=== PATIENT | female | born 1935 | race Caucasian/White ===

== ENCOUNTER → 2018-01-03 | Outpatient (CLI) | payer MEDICARE, BC ==
[~2018-01-03] MED LIST: ALEVE; DIOVAN160 MG PO; HYDROCHLOROTHIA25 MG PO; Z.0.DIOVAN HCT 1601 PO; ZOFRAN4 MG PO
--- NOTE | 2018-01-03 20:52 | Diagnostic Imaging Report ---
PROCEDURE:X-RAY ABDOMEN - KUB COMPARISON:Patients [facility], CT, CT ABDOMEN/PELVIS WO, 12/26/2016, 21:16. Patients [facility], DX, ABDOMEN-1VIEW (KUB), 05/03/2017, 11:35. INDICATIONS:follow up for kidney stones. denies complaints FINDINGS: Nonobstructive bowel gas pattern. Radiopaque densities projecting in the left upper quadrant corresponds to splenic artery calcifications. No radiopaque densities project over the renal shadows, expected course of the ureters or bladder. Stable pelvic phleboliths. Degenerative changes in the thoracic spine with mild leftward curvature. CONCLUSION: No radiopaque densities project over the genitourinary tract. Carrillo Salazar M.D. Dictated by: Carrillo Salazar M.D. on 01/03/2018 at 17:46 Electronically approved by: Carrillo Salazar M.D. on 01/03/2018 at 17:46
== END ==
LOC: RAD 13:40
PROVIDERS: ATTEND Urology
DX: Z87.442 Personal history of urinary calculi (principal)
CPT/HCPCS: 74018

== ENCOUNTER → 2019-02-22 | Outpatient (CLI) | payer MEDICARE, BC ==
--- NOTE | 2019-02-22 12:44 | Diagnostic Imaging Report ---
Exam: KUB Clinical history: Renal calculus Findings: No radiopaque stones are noted in the region of the renal shadows. 1 to 2 mm calcific density structures are seen overlying the left lower pelvis which may represent phleboliths, although distal ureteral stone cannot be excluded. There is nonobstructive bowel gas pattern. Degenerative changes of the lumbar spine are noted. Impression: 1. Tiny calcific density overlying the left lower pelvic region, phleboliths versus distal ureteral stone. Signed by: Dr. Alphonse Cortez MD on 02/22/2019 12:41 PM
== END ==
LOC: RAD 10:13
PROVIDERS: ATTEND Urology
DX: N20.0 Calculus of kidney (principal)
CPT/HCPCS: 74018

== ENCOUNTER 2020-12-10 14:13 | Emergency (ER) | payer MEDICARE, BC, OTHER ==
[~2020-12-10] VITALS: Ht 165.1 cm; Wt 81.6 kg
[2020-12-10] MEDS ORDERED: BENICAR20 MG PO (14:33)
[2020-12-10] MEDS ORDERED: ACETAMINOPHEN 325 MG TAB PO ONE (14:45)
[2020-12-10] MEDS ORDERED: IBUPROFEN IB200 MG PO (14:50)
[2020-12-10] MEDS ORDERED: ACETAMINOPHEN500 MG PO (14:50)
== END 2020-12-10 16:09 | disposition home or self-care (01) ==
LOC: FSED 14:21
DX: S90.111A Contusion of right great toe without damage to nail, initial encounter (principal); S00.83XA Contusion of other part of head, initial encounter; S20.211A Contusion of right front wall of thorax, initial encounter; W01.198A Fall on same level from slipping, tripping and stumbling with subsequent striking against other object, initial encounter; Y93.01 Activity, walking, marching and hiking; Y92.008 Other place in unspecified non-institutional (private) residence as the place of occurrence of the external cause; I10 Essential (primary) hypertension
CPT/HCPCS: 70450; 71101; 99283

== ENCOUNTER → 2020-12-19 | Outpatient (CLI) | payer MEDICARE, BC ==
[~2020-12-19] MED LIST changes: +ACETAMINOPHEN500 MG PO; +BENICAR20 MG PO; +IBUPROFEN IB200 MG PO
== END ==
LOC: MRI 10:37
PROVIDERS: ATTEND Family Medicine
DX: R42 Dizziness and giddiness (principal); R55 Syncope and collapse; R51.9 Headache, unspecified
CPT/HCPCS: 70551

== ENCOUNTER 2021-01-29 17:07 | Emergency (ER) | payer MEDICARE, BC ==
[~2021-01-29] VITALS: Ht 162.6 cm; Wt 84.8 kg
[2021-01-29] MEDS ORDERED: LIDOPATCH1 EACH TOP (19:28)
[2021-01-29 19:38] VITALS: BP 167/74
== END 2021-01-29 19:38 | disposition home or self-care (01) ==
LOC: FSED 17:15
DX: R42 Dizziness and giddiness (principal); R50.9 Fever, unspecified; R51.9 Headache, unspecified; I10 Essential (primary) hypertension
CPT/HCPCS: 70450; 71045; 80053; 81003; 82553; 84484; 85025; 93041; 99284